=== PATIENT | male | born 1960 | race Two or more races ===

== ENCOUNTER 2019-02-27 08:45 | Emergency (ER) | payer MEDICAID ==
[~2019-02-27] VITALS: Ht 175.3 cm; Wt 88.5 kg
[2019-02-27 10:38] LABS: Urine Bacteria NONE SEEN /hpf (None Seen); Urine Blood Negative /uL (Negative); Urine Specific Gravity 1.006 (1.001-1.035); Urine WBC <1 /hpf (0 - 3)
[2019-02-27 11:30] VITALS: BP 142/95
== END 2019-02-27 13:06 | disposition other institution (70) ==
LOC: ER 08:45
DX: R33.9 Retention of urine, unspecified (principal); R30.0 Dysuria; R39.15 Urgency of urination; R10.9 Unspecified abdominal pain; I10 Essential (primary) hypertension
CPT/HCPCS: 51702; 74176; 81001

== ENCOUNTER 2019-03-01 11:30 | Emergency (ER) | payer MEDICAID ==
[~2019-03-01] VITALS: Ht 167.6 cm; Wt 92.1 kg
[2019-03-01 11:48] VITALS: BP 120/83
[2019-03-01] MEDS ORDERED: cefTRIAXone W LIDOCAINE 1 GM IM IM ONE (12:45)
[2019-03-01 13:45] LABS: Urine Bacteria NONE SEEN /hpf (None Seen); Urine Blood 2+ /uL (Negative); Urine Mucus FEW (None Seen); Urine WBC 2954 /hpf (0 - 3)
[2019-03-01 13:58] LABS: Urine Specific Gravity 1.016 (1.001-1.035)
[2019-03-01] MEDS ORDERED: cefTRIAXone SOD 1,000 MG VL IM ONE (14:15)
== END 2019-03-01 14:37 | disposition home or self-care (01) ==
LOC: ER 11:30
DX: T83.89XA Other specified complication of genitourinary prosthetic devices, implants and grafts, initial encounter (principal); N39.0 Urinary tract infection, site not specified; I10 Essential (primary) hypertension
CPT/HCPCS: 81001; 96372; 99283; J0696

== ENCOUNTER 2019-03-03 01:32 | Inpatient (IN) | payer MEDICAID ==
[~2019-03-03] VITALS: Ht 175.3 cm; Wt 89.4 kg
[2019-03-03 02:16] LABS: Basophils # (auto) 0 uL; Basophils % (auto) 0.3 % (0.0-2.0); Eosinophils # (auto) 0 uL; Eosinophils % (auto) 0.3 % (0.0-7.0); Hematocrit 51.3 % (41.0-53.0); Hemoglobin 17.6 g/dL (13.5-17.5); Lymphocytes # (auto) 0.9 uL; Lymphocytes % (auto) 7.5 % (10.0-50.0); Mean Corpuscular Hemoglobin 32.3 pg (28.0-32.0); Mean Corpuscular Hgb Conc. 34.3 g/dL (32.0-36.0); Mean Corpuscular Volume 94.1 fL (80.0-100.0); Monocytes # (auto) 0.5 uL; Monocytes % (auto) 4.6 % (0.0-12.0); Neutrophils # (auto) 10.1 uL; Neutrophils % (auto) 87.3 % (37.0-80.0); Platelet Count (auto) 239 10^3/uL (140-450); Red Blood Cells 5.45 10^6/uL (4.5-5.90); Red Cell Distribution Width 13.3 % (11.8-14.3); White Blood Cell 11.5 10^3/uL (4.4-10.8)
[2019-03-03 02:34] LABS: Albumin 4.2 g/dL (3.4-5.0); BUN/Creatinine Ratio 14.3; Calcium 9.1 mg/dL (8.5-10.1)
[2019-03-03 02:38] LABS: Bilirubin, Total 1.9 mg/dL (0.2-1.0); Total Protein 8.7 g/dL (6.4-8.2)
[2019-03-03 05:33] LABS: Urine Bacteria FEW /hpf (None Seen); Urine Blood 3+ /uL (Negative); Urine Mucus FEW (None Seen); Urine Specific Gravity 1.018 (1.001-1.035); Urine WBC 56 /hpf (0 - 3)
[2019-03-03] MEDS ORDERED: NITROGLYCERIN 0.4 MG SL TAB SL PRN (06:30)
[2019-03-03] MEDS ORDERED: ACETAMINOPHEN 325 MG TAB PO PRN (06:30)
[2019-03-03] MEDS ORDERED: TEMAZEPAM 15 MG CAP PO PRN (06:30)
[2019-03-03] MEDS ORDERED: MORPHINE SULF INJ 2 MG/ML SYRINGE 1ML IV PRN (06:30)
[2019-03-03] MEDS ORDERED: HYDROcodone-ACET 5/325MG TAB PO PRN (06:30)
[2019-03-03] MEDS ORDERED: ONDANSETRON HCL 4 MG/2 ML VIAL IV PRN (06:30)
[2019-03-03] MEDS ORDERED: cefTRIAXone 1GM/50ML D5W 50 ML IV SCH (09:00)
[2019-03-03] MEDS ORDERED: FAMOTIDINE 20 MG TAB PO SCH (10:00)
[2019-03-03] MEDS ORDERED: HCTZ 25 MG TAB PO SCH (10:00)
[2019-03-03] MEDS ORDERED: ENALAPRIL MALEATE 10 MG TAB PO SCH (10:00)
[2019-03-03] MEDS ORDERED: ASPirin 81 mg TAB PO SCH (10:00)
--- NOTE | 2019-03-03 10:30 | NUR ---
RECEIVED REPORT FROM FEROZ CUEVAS.
--- NOTE | 2019-03-03 10:58 | NUR ---
Telemetry admit from [facility] FOSTER admitted to Telemetry unit after SBAR received. Patient oriented to KEYONNA HILL RN, unit, room, bed, and unit policies regarding patient care and visiting hours. Patient now on continuous telemetry monitoring, tele box # 82 and telemetry reading on arrival to unit is SINUS RHYTHM AT 84. Patient weighed by bedscale and encouraged to call if they need something. All questions and concerns addressed, patient verbalized understanding.
[2019-03-03 11:40] VITALS: BP 134/66
[2019-03-03 13:00] VITALS: BP 127/73
[2019-03-03 14:55] VITALS: BP 134/66
--- NOTE | 2019-03-03 16:31 | NUR ---
Discharge planning per consult, patient has orders for home health for [facility]. Referral sent to [facility]. Placed a follow up call, spoke to [facility] and was advise that they will accept this patient on discharge and that start of care will be within 24-48 hours. Obtained auth from [facility]-[id number]. Nurse Aldridge was advised. Addendum: 03/03/19 at 1643 by HARINI PEDERSON Amended: Links added.
--- NOTE | 2019-03-03 17:15 | NUR ---
Discharge instructions given as ordered. Encourage to follow up with PMD as instructed. All questions and concerns addressed. Patient verbalized understanding. Medication reconciliation form completed and copy given to patient. IV removed with catheter intact, pressure dressing applied, montes catheter REMAINS IN PLACE PER UROLOGY. Telemetry unit returned to ICU. Patient taken to vehicle via wheelchair with all personal belongings, accompanied by staff and family member. No distress noted at time of departure.
[2019-03-03] MEDS ORDERED: TAMSULOSIN HYDROCHLORIDE 0.4 MG CAP PO SCH (18:00)
[2019-03-03] MEDS ORDERED: ATORVASTATIN 20 MG TAB PO SCH (22:00)
== END 2019-03-03 17:15 | disposition home health service (06) | DRG 465 ==
LOC: ER 01:37 → TELE 01:38 → TELE-WESTW 11:07
PROVIDERS: ADMIT Nurse Practitioner; ATTEND Hospitalist
DX: N13.8 Other obstructive and reflux uropathy (principal); E78.5 Hyperlipidemia, unspecified; N39.0 Urinary tract infection, site not specified; I10 Essential (primary) hypertension; R33.9 Retention of urine, unspecified; R79.89 Other specified abnormal findings of blood chemistry; K44.9 Diaphragmatic hernia without obstruction or gangrene; K59.00 Constipation, unspecified; N40.1 Benign prostatic hyperplasia with lower urinary tract symptoms
CPT/HCPCS: 36415; 71045; 74176; 80053; 80061; 81001; 83036; 83735; 84154; 84484; 85025; 93005; 96365; G0378; J0696

== ENCOUNTER 2019-05-08 04:41 | Emergency (ER) | payer MEDICAID ==
[~2019-05-08] VITALS: Ht 175.3 cm; Wt 90.7 kg
[2019-05-08 10:36] VITALS: BP 158/100
== END 2019-05-08 11:30 | disposition home or self-care (01) ==
LOC: ER 04:41
DX: N40.1 Benign prostatic hyperplasia with lower urinary tract symptoms (principal); I10 Essential (primary) hypertension; T83.031A Leakage of indwelling urethral catheter, initial encounter
CPT/HCPCS: 51702